=== PATIENT | female | born 1965 ===

== ENCOUNTER 2016-08-27 16:33 | Emergency (ER) | payer MEDICAID ==
--- NOTE | 2016-08-27 17:10 | C.PDOC ---
History Of Present Illness Patient is a 51 year old female who presents to the ER with a complaint of hematuria and dysuria for 3 days; associated with a fever yesterday. Denies any PMHx, nausea, vomiting, back pain, or abdominal pain. Time Seen by Provider: 08/27/16 16:55 Chief Complaint (Nursing): Female Genitourinary History Per: Patient History/Exam Limitations: no limitations Onset/Duration Of Symptoms: Days (3) Current Symptoms Are (Timing): Still Present Quality Of Discomfort: Unable To Describe Associated Symptoms: Fever, Urinary Symptoms. denies: Nausea, Vomiting, Back Pain, Other (Abdominal pain) Alleviating Factors: None Recent travel outside of the [place]: No Abnormal Vaginal Bleeding: No Past Medical History Reviewed: Historical Data, Nursing Documentation, Vital Signs Vital Signs: Last Vital Signs Temp 97.6 F 08/27/16 18:03 Pulse 66 08/27/16 18:03 Resp 20 08/27/16 18:03 BP 151/82 H 08/27/16 18:03 Pulse Ox 99 08/27/16 22:50 - Medical History PMH: HTN Surgical History: No Surg Hx Family History: States: Unknown Family Hx - Social History Hx Alcohol Use: No Hx Substance Use: No - Immunization History Hx Tetanus Toxoid Vaccination: No Hx Influenza Vaccination: No Hx Pneumococcal Vaccination: No Review Of Systems Constitutional: Positive for: Fever Gastrointestinal: Negative for: Nausea, Vomiting, Abdominal Pain Genitourinary: Positive for: Dysuria, Hematuria Musculoskeletal: Negative for: Back Pain Physical Exam - Physical Exam Appears: Non-toxic, No Acute Distress Skin: Normal Color, Warm, Dry Head: Atraumatic, Normacephalic Oral Mucosa: Moist Neck: Normal, Supple Chest: Symmetrical, No Tenderness Cardiovascular: Rhythm Regular, No Murmur Respiratory: Normal Breath Sounds, No Rales, No Rhonchi, No Wheezing Gastrointestinal/Abdominal: Soft, No Tenderness Back: No CVA Tenderness Neurological/Psych: Oriented x3, Normal Speech, Normal Cognition ED Course And Treatment O2 Sat by Pulse Oximetry: 99 (Room air) Pulse Ox Interpretation: Normal Progress Note: Urine culture ordered. Macrobid administered. Disposition Counseled Patient/Family Regarding: Studies Performed, Diagnosis, Need For Followup, Rx Given - Disposition Referrals: Delfina Gordon MD [Medical Doctor] - Disposition: HOME/ ROUTINE Disposition Time: 17:56 Condition: STABLE Additional Instructions: Lorie lquidos aumentados, el agua y el jugo de arndano son buenos. [facility] la medicacin segn lo prescrito. Tylenol o Motrin para el dolor. Consulte a bangura m dico en unos nunn. Vuelva al ER para cualquier empeoramiento de los sntomas. Prescriptions: Nitrofurantoin Macrocrystals [Macrobid] 100 mg PO BID #14 cap Instructions: Urinary Tract Infection in Women (ED) Forms: Gen Discharge Inst German Print Language: CHADIAN - Clinical Impression Clinical Impression: Cystitis - Scribe Statement The provider has reviewed the documentation as recorded by the Scribe Alfredo Harrell All medical record entries made by the Scribe were at my direction and personally dictated by me. I have reviewed the chart and agree that the record accurately reflects my personal performance of the history, physical exam, medical decision making, and the department course for this patient. I have also personally directed, reviewed, and agree with the discharge instructions and disposition.
[2016-08-27 17:12] LABS: RBC URINE 7 /hpf (0-3); URINE BILIRUBIN NEGATIVE (NEGATIVE); URINE COLOR Yellow (YELLOW); URINE GLUCOSE (UA) NORMAL (Normal); URINE KETONE NEGATIVE (NEGATIVE); URINE LEUKOCYTE ESTERASE NEG Leu/uL (Negative); URINE PROTEIN NEGATIVE (NEGATIVE); URINE UROBILINOGEN NORMAL mg/dL (0.2-1.0); WBC URINE < 1 /hpf (0-5)
[2016-08-27 17:15] LABS: URINE BLOOD 1+ (NEGATIVE)
[2016-08-27 18:07] VITALS: BP 151/82; PULSE 66; RESP 20; TEMP 97.6
[2016-08-27 18:12] VITALS: O2SAT 99
== END 2016-08-27 18:11 | disposition home or self-care (01) ==
LOC: C.ER 16:33
DX: N30.90 Cystitis, unspecified without hematuria (principal)

== ENCOUNTER 2016-08-29 17:35 | Emergency (ER) | payer MEDICAID ==
[2016-08-29 17:49] VITALS: RESP 15; O2SAT 98
[2016-08-29 19:09] LABS: BASO # 0.1 K/uL (0.0-0.2); EOS # 0.2 K/uL (0.0-0.7); EOS % 2.8 % (0.0-4.0); HEMOGLOBIN 13.4 g/dL (11.0-16.0); LYMPH # 1.1 K/uL (1.0-4.3); LYMPH % 16.4 % (20.0-40.0); MEAN CELL VOLUME 83.7 fL (81.0-99.0); MEAN CORPUSCULAR HEMOGLOBIN 27.6 pg (27.0-31.0); MEAN PLATELET VOLUME 9.1 fL (7.2-11.7); MONO # 0.8 K/uL (0.0-0.8); MONO % 12.4 % (0.0-10.0); NEUT # 4.3 K/uL (1.8-7.0); NEUT % 67.4 % (50.0-75.0); NRBC % 0.1 % (0.0-2.0); RBC 4.84 Mil/uL (3.80-5.20); RED CELL DISTRIBUTION WIDTH 14.2 % (11.5-14.5); WHITE BLOOD COUNT 6.4 K/uL (4.8-10.8)
[2016-08-29 19:15] LABS: SQUAMOUS EPITHIAL 4 /hpf (0-5); URINE BILIRUBIN 1+ (NEGATIVE); URINE BLOOD 1+ (NEGATIVE); URINE CLARITY Clear (Clear); URINE GLUCOSE (UA) NORMAL (Normal); URINE LEUKOCYTE ESTERASE NEG Leu/uL (Negative); URINE NITRATE NEGATIVE (NEGATIVE); URINE PROTEIN NEGATIVE (NEGATIVE)
[2016-08-29 19:17] LABS: ALBUMIN 4.2 g/dL (3.5-5.0); URINE COLOR YELLOW (YELLOW)
[2016-08-29 19:20] LABS: ALB/GLOB RATIO 1.1 (1.0-2.1); AST/SGOT 121 U/L (14-36); GFR AFRICAN-AMERICAN > 60; GFR NON-AFRICAN AMERICAN > 60
[2016-08-29 19:21] LABS: ALT/SGPT 572 U/L (9-52); BLOOD UREA NITROGEN 7 mg/dL (7-17); CALCIUM 9.1 mg/dl (8.6-10.4)
--- NOTE | 2016-08-29 19:23 | C.PDOC ---
History Of Present Illness 42-year-old female, presents to the emergency department with complaints of abdominal pain. Patient states she has been experiencing lower abdominal pain that is associated with nausea and an episode of non-bilious/non-bloody vomiting yesterday. Patient was seen in ED two days ago for urinary frequency and urgency, and given Macrobid for a UTI. States urinary symptoms have improved. Denies vaginal bleeding/discharge, fevers, chills, shortness of breath , chest pain, or any other associated symptoms. No other complaints at this time. Of note, patients last normal bowel movement was this morning. Time Seen by Provider: 08/29/16 18:06 Chief Complaint (Nursing): Female Genitourinary History Per: Patient History/Exam Limitations: no limitations Onset/Duration Of Symptoms: Days Current Symptoms Are (Timing): Still Present Severity: Moderate Quality Of Discomfort: "Pain" Past Medical History Reviewed: Historical Data, Nursing Documentation, Vital Signs Vital Signs: Last Vital Signs Temp 98.5 F 08/29/16 17:45 Pulse 69 08/29/16 17:45 Resp 15 08/29/16 17:45 BP 151/85 H 08/29/16 17:45 Pulse Ox 98 08/29/16 22:43 - Medical History PMH: HTN Surgical History: No Surg Hx Family History: States: Unknown Family Hx - Social History Hx Alcohol Use: No Hx Substance Use: No - Immunization History Hx Tetanus Toxoid Vaccination: No Hx Influenza Vaccination: No Hx Pneumococcal Vaccination: No Review Of Systems Constitutional: Negative for: Fever Gastrointestinal: Positive for: Nausea, Vomiting, Abdominal Pain. Negative for : Diarrhea, Constipation Genitourinary: Positive for: Dysuria. Negative for: Vaginal Discharge, Vaginal Bleeding Musculoskeletal: Negative for: Back Pain Physical Exam - Physical Exam Appears: Non-toxic, No Acute Distress Skin: Warm, Dry, No Rash Cardiovascular: Rhythm Regular, No Murmur Respiratory: Normal Breath Sounds, No Accessory Muscle Use Gastrointestinal/Abdominal: Soft, Tenderness (Questionable/Inconsistent tenderness diffusely), No Guarding, No Rebound Extremity: Normal ROM Neurological/Psych: Oriented x3, Normal Speech Gait: Steady ED Course And Treatment - Laboratory Results Result Diagrams: 08/29/16 19:03 08/29/16 19:03 O2 Sat by Pulse Oximetry: 98 Medical Decision Making Medical Decision Making: Impression: Prior Visits Notes and visits from previous visits were reviewed. Patient seen in ED on 08/27 for hematuria and dc with Macrobid for UTI. P 1045 pm pt with neg abdominal u/s, with elevated lft,, there is chance this is from macrobid; pt advised to stop this medication, and f/u pmd for further testing of liver funcitn tests. also advised to avoid tylenol. Disposition Counseled Patient/Family Regarding: Studies Performed, Diagnosis, Need For Followup - Disposition Referrals: Delfina Gordon MD [Medical Doctor] - Disposition: HOME/ ROUTINE Disposition Time: 22:33 Condition: STABLE Additional Instructions: Mabel pruebas de funcin heptica estn elevadas; [place] puede ser la forma de los medicamentos que le dieron para las infecciones de orina. No tome ninguna dosis de maccrobid (nittofurantoin). Traiga shaq copia de los documentos de jorge luis, chanell y ultrasonido a bangura mdico en los prximos 2-3 nunn y mustrales a l o steven. Necesitar repetir los anlisis de chanell. Regrese a ER para cualquier dolor peor en el abdomen, fiebre, vmitos o cualquier otra preocupaci DO Not take any Tylenol. Your potassium is a little low. Eat some bananas or oranges for the next few days. Instructions: Hypokalemia (ED) Forms: Gen Discharge Inst Latvian Print Language: ROMANIAN - Clinical Impression Clinical Impression: Adverse drug reaction, Abnormal liver function tests, Hypokalemia - PA / WEB DESIGNER / Resident Statement / has reviewed & agrees with the documentation as recorded. - Scribe Statement The provider has reviewed the documentation as recorded by the Scribe (Francheska Mcdowell) All medical record entries made by the Scribe were at my direction and personally dictated by me. I have reviewed the chart and agree that the record accurately reflects my personal performance of the history, physical exam, medical decision making, and the department course for this patient. I have also personally directed, reviewed, and agree with the discharge instructions and disposition.
[2016-08-29] MEDS ORDERED: Iohexol 240 (50 ml) PO STA (20:30)
[2016-08-29] MEDS ORDERED: Iohexol 240 (50 ml) ONE (20:50)
[2016-08-29] MEDS ORDERED: Iodixanol 320 MG/ML 100 ML BOTTLE IV ONE (21:52)
--- NOTE | 2016-08-29 22:14 | US ---
EXAM: US Abdomen Limited, Right Upper Quadrant CLINICAL HISTORY: 51 years old, female; Pain; Abdominal pain; Generalized; Additional info: Ruq pain with abnl lft TECHNIQUE: Real-time ultrasound of the right upper quadrant with image documentation. EXAM DATE/TIME: 08/29/2016 9:10 PM COMPARISON: There are no prior studies for comparison. FINDINGS: Liver: Texture of the liver is mildly heterogeneous. There is hepatopedal flow in the main portal vein. Gallbladder: Gallbladder is partially distended with no stones, sludge or wall thickening. Common bile duct: Common bile duct measures 4 mm in diameter Pancreas: Pancreas is partially obscured by bowel gas. Visualized portion is echogenic. Right kidney: Right kidney is normal in size. There is minimal right pelvic fullness Aorta: Visualized portions of the aorta and inferior vena cava are unremarkable. IMPRESSION: Fatty liver; no gallstones or ductal dilatation Patient was not tender over the gallbladder
[2016-08-29] MEDS ORDERED: Potassium Chloride 20 mEq ER Tab PO ONE (22:57)
[2016-08-29 23:06] VITALS: BP 159/84; PULSE 70; TEMP 98
[2016-08-30] MEDS ORDERED: Potassium Chloride 20 mEq ER Tab PO SCH (10:00)
== END 2016-08-29 23:06 | disposition home or self-care (01) ==
LOC: C.ER 17:35
DX: R10.30 Lower abdominal pain, unspecified (principal); T37.8X5A Adverse effect of other specified systemic anti-infectives and antiparasitics, initial encounter; R94.5 Abnormal results of liver function studies; E87.6 Hypokalemia
CPT/HCPCS: 76705; 80053; 81001; 85025; 99284; Q9966; Q9967